=== PATIENT | male | born 1995 | race Caucasian/White ===

== ENCOUNTER 2019-05-02 02:42 | Inpatient (IN) ==
[2019-05-02 03:30] LABS: Basophils # (auto) 0.02 K/uL (0-0.2); Basophils % (auto) 0.3 %; Eosinophils # (auto) 0.17 K/uL (0-0.5); Eosinophils % (auto) 2.2 %; Hematocrit (blood only) 49.6 % (42-52); Hemoglobin 18.2 g/dL (14.0-18.0); Immature Granulocytes # (auto) 0.01 K/uL (0.00-0.02); Immature Granulocytes % (auto) 0.1 %; Lymphocytes # (auto) 2.85 K/uL (1.2-3.4); Lymphocytes % (auto) 36.5 %; Mean Corpuscular Hgb Conc 36.7 g/dL (32-36); Mean Corpuscular Volume 85.1 fL (80-100); Mean Platelet Volume 10.7 fL (7.4-10.4); Monocytes # (auto) 0.39 K/uL (0.11-0.59); Neutrophils # (auto) 4.36 K/uL (1.4-6.5); Neutrophils % (auto) 55.9 %; Platelet Count 195 K/uL (130-400); RDW Coefficient of Variation 12.4 % (11.5-14.5); RDW Standard Deviation 38.2 fL (36.4-46.3); Red Blood Count 5.83 M/uL (4.7-6.1)
[2019-05-02 03:51] LABS: Alanine Aminotransferase 40 U/L (12-78); Albumin Level 4.6 gm/dl (3.4-5.0); Aspartate Aminotransferase 21 U/L (15-37); BUN Creatinine Ratio 10.7 (10-20); Blood Urea Nitrogen 12 mg/dl (7-18); Calcium 8.5 mg/dl (8.5-10.1); Carbon Dioxide 23 mmol/L (21-32); Chloride 109 mmol/L (98-107); Creatinine Clr Calc Pharmacy 117.8 ml/min; Est GFR (African American) 112.3; Est GFR (Non-African American) 96.9; Glucose 97 mg/dl (70-99); Potassium 3.9 mmol/L (3.5-5.1); Sodium 142 mmol/L (136-145)
[2019-05-02 04:02] LABS: Acetaminophen < 2 ug/ml (10-30); Albumin Globulin Ratio 1.3 (0.9-2); Alkaline Phosphatase 100 U/L (45-117); Bilirubin,Total 0.3 mg/dl (0.2-1); Globulin 3.6 gm/dl (2.5-4.0); Salicylate < 1.7 mg/dl (2.8-20); Total Protein 8.2 gm/dl (6.4-8.2)
[2019-05-02 04:33] LABS: Amphetamines+Metham, Urine Neg (Neg); Barbiturates, Urine Neg (Neg); Benzodiazepine, Urine Neg (Neg); Cocaine, Urine Neg (Neg); MDMA (Ecstacy), Urine Neg (Neg); Methadone, Urine Neg (Neg); Opiate, Urine Neg (Neg); Phencyclidine, Urine Neg (Neg)
[2019-05-02 04:56] LABS: Appearance Urine Clear (Clear); Bilirubin Urine Negative (Negative); Blood Urine Negative (Negative); Color Urine Yellow; Glucose Urine UA Negative (Negative); Ketones Urine Negative (Negative); Leukocyte Esterase Urine Negative (Negative); Nitrite Urine Negative (Negative); Protein Urine Negative (Negative); Urobilinogen Urine Negative (Negative); pH Urine 5.5 (4.5-7.5)
[2019-05-02 05:06] LABS: Magnesium 2.4 mg/dl (1.8-2.4); Troponin I < 0.015 ng/ml (0-0.045)
[2019-05-02 05:30] LABS: Base Excess ABG -4.2 mEq/L (-9-1.8); HCO3 ABG 20 mmol/L (19-24); Oxygen Saturation ABG 97.6 % (90-95); PCO2 ABG 37 mmHg (35-46); PO2 ABG 99 mm/Hg (80-95); pH ABG 7.37 (7.35-7.45)
[2019-05-02 05:32] LABS: Allen Test Pos (Pos)
--- NOTE | 2019-05-02 05:52 | History & Physical Report ---
Date of Service May 02, 2019 Assessment & Plan (1) Hypoxemia: Episodic apneic symptoms Concomitant alcoholic intoxication Differentials include : Seizure disorder, sleep disordered breathing, cardiac dysfunction/arrhythmia Ongoing tobacco abuse Medical telemetry TTE, EEG RE episodic unresponsiveness Pulmonary consult RE episodic apnea, ? Undiagnosed sleep disorder DT precautions once patient awake Nicotine patch prn. DVT prophylaxis. SCDs Full code Mother requesting updates from providers. Mrs. Adela Theodore, contact #[phone]. History of Present Illness Chief Complaint: Passing out as per records Primary Care Provider: NO PCP History obtained from patient family, and records. Unable to obtain history from patient secondary to intoxicated state. Medical history significant for ongoing alcohol, tobacco abuse as per patient's mother. Patient is a resident of [place], [place] who is in town for the [employer]. Patient found downtown to be unresponsive, with intermittent apneic episodes and blank stares. EMS called to evaluate patient. Patient noted to have intermittent hypoxemia in the 80s. Similar episode in [facility] sometime back as per patient's mother. Patient brought to the emergency room for evaluation. Medical History as above Surgical History : None as per mother Family History : Sleep apnea Personal/Social history : Tobacco/alcohol abuse as per patient mother, factory work Home Medications Home Medications Medication Instructions Recorded Confirmed Type Unobtainable 05/02/19 05/02/19 History Past Med/Surg History Medical History No pertinent past medical history Family History Other No pertinent family history in first degree relatives Social History Preferred Language: Maltese Communication Ability: Effective Beliefs That Will Affect Care: None marital status: Unknown Current Living Situation: Parent Feels Safe at Home: Yes Safety Concerns: Feels Safe At This Time Smoking Status: Never smoker Hx Alcohol Use: Yes Alcohol type: beer and hard liquor Hx Substance Use: No Review of Systems Review of Systems: Could not be reliably obtained Physical Exam Physical Exam: GENERAL: obtunded, no respiratory distress SKIN: Normal color, warm HEENT: [place] palpebral conjunctivae, no ptosis, moist buccal mucosa NECK : Supple, no tenderness CHEST : CTA, no tenderness HEART : RRR, no obvious murmurs ABDOMEN: Some distention, nontender EXTREMITIES : No LE swelling/tenderness, no other conspicuous deformities noted NEUROLOGIC : Obtunded, miotic pupils, no facial asymmetry, no other gross focality Results & Data Vital Signs (Past 12 Hours) Vital Signs Temp Pulse Pulse Resp BP BP Pulse Ox 05/02/19 05:31 78 21 121/56 L 97 05/02/19 05:00 70 22 123/66 96 05/02/19 04:33 64 24 115/56 L 96 05/02/19 04:03 70 16 124/69 98 05/02/19 04:00 85 16 113/69 96 05/02/19 03:34 83 24 122/82 97 05/02/19 03:19 76 16 137/77 96 05/02/19 03:02 97 05/02/19 03:01 97 05/02/19 02:51 36.9 C 95 H 18 140/77 97 Laboratory Results Laboratory Results WBC 7.80 K/uL (4.8-10.8) 05/02/19 03:16 RBC 5.83 M/uL (4.7-6.1) 05/02/19 03:16 Hgb 18.2 g/dL (14.0-18.0) H 05/02/19 03:16 Hct 49.6 % (42-52) 05/02/19 03:16 MCV 85.1 fL (80-100) 05/02/19 03:16 MCH 31.2 pg (25-34) 05/02/19 03:16 MCHC 36.7 g/dL (32-36) H 05/02/19 03:16 RDW Std Deviation 38.2 fL (36.4-46.3) 05/02/19 03:16 RDW Coeff of Yoshi 12.4 % (11.5-14.5) 05/02/19 03:16 Plt Count 195 K/uL (130-400) 05/02/19 03:16 MPV 10.7 fL (7.4-10.4) H 05/02/19 03:16 Immature Gran % (Auto) 0.1 % 05/02/19 03:16 Neut % (Auto) 55.9 % 05/02/19 03:16 Lymph % (Auto) 36.5 % 05/02/19 03:16 [place] % (Auto) 5.0 % 05/02/19 03:16 Eos % (Auto) 2.2 % 05/02/19 03:16 Baso % (Auto) 0.3 % 05/02/19 03:16 Immature Gran # (Auto) 0.01 K/uL (0.00-0.02) 05/02/19 03:16 Neut # (Auto) 4.36 K/uL (1.4-6.5) 05/02/19 03:16 Lymph # (Auto) 2.85 K/uL (1.2-3.4) 05/02/19 03:16 [place] # (Auto) 0.39 K/uL (0.11-0.59) 05/02/19 03:16 Eos # (Auto) 0.17 K/uL (0-0.5) 05/02/19 03:16 Baso # (Auto) 0.02 K/uL (0-0.2) 05/02/19 03:16 ABG pH 7.37 (7.35-7.45) 05/02/19 05:15 ABG pCO2 37 mmHg (35-46) 05/02/19 05:15 ABG pO2 99 mm/Hg (80-95) H 05/02/19 05:15 ABG HCO3 20 mmol/L (19-24) 05/02/19 05:15 ABG O2 Saturation 97.6 % (90-95) H 05/02/19 05:15 ABG Base Excess -4.2 mEq/L (-9-1.8) 05/02/19 05:15 Aelx Test Pos (Pos) 05/02/19 05:15 Barometric Pressure 732.0 mm/Hg 05/02/19 05:15 Oxygen Given ROOM AIR 05/02/19 05:15 Sodium 142 mmol/L (136-145) 05/02/19 03:16 Potassium 3.9 mmol/L (3.5-5.1) 05/02/19 03:16 Chloride 109 mmol/L (98-107) H 05/02/19 03:16 Carbon Dioxide 23 mmol/L (21-32) 05/02/19 03:16 Anion Gap 10.0 (3-11) 05/02/19 03:16 BUN 12 mg/dl (7-18) 05/02/19 03:16 Creatinine 1.08 mg/dl (0.6-1.4) 05/02/19 03:16 Est Cr Clr Drug Dosing 117.8 ml/min 05/02/19 03:16 Est GFR ( Amer) 112.3 05/02/19 03:16 Est GFR (Non-Af Amer) 96.9 05/02/19 03:16 BUN/Creatinine Ratio 10.7 (10-20) 05/02/19 03:16 Glucose 97 mg/dl (70-99) 05/02/19 03:16 Calcium 8.5 mg/dl (8.5-10.1) 05/02/19 03:16 Magnesium 2.4 mg/dl (1.8-2.4) 05/02/19 03:16 Total Bilirubin 0.3 mg/dl (0.2-1) 05/02/19 03:16 AST 21 U/L (15-37) 05/02/19 03:16 ALT 40 U/L (12-78) 05/02/19 03:16 Alkaline Phosphatase 100 U/L (45-117) 05/02/19 03:16 Ammonia 20.0 umol/L (11-32) 05/02/19 05:15 Troponin I < 0.015 ng/ml (0-0.045) 05/02/19 03:16 Total Protein 8.2 gm/dl (6.4-8.2) 05/02/19 03:16 Albumin 4.6 gm/dl (3.4-5.0) 05/02/19 03:16 Globulin 3.6 gm/dl (2.5-4.0) 05/02/19 03:16 Albumin/Globulin Ratio 1.3 (0.9-2) 05/02/19 03:16 TSH 2.190 uIu/ml (0.300-4.500) 05/02/19 03:16 Urine Color Yellow 05/02/19 04:05 Urine Appearance Clear (Clear) 05/02/19 04:05 Urine pH 5.5 (4.5-7.5) 05/02/19 04:05 Ur Specific [place] 1.010 (1.000-1.030) 05/02/19 04:05 Urine Protein Negative (Negative) 05/02/19 04:05 Urine Glucose (UA) Negative (Negative) 05/02/19 04:05 Urine Ketones Negative (Negative) 05/02/19 04:05 Urine Blood Negative (Negative) 05/02/19 04:05 Urine Nitrite Negative (Negative) 05/02/19 04:05 Urine Bilirubin Negative (Negative) 05/02/19 04:05 Urine Urobilinogen Negative (Negative) 05/02/19 04:05 Ur Leukocyte Esterase Negative (Negative) 05/02/19 04:05 Salicylates < 1.7 mg/dl (2.8-20) L 05/02/19 03:16 Urine Opiates Screen Neg (Neg) 05/02/19 04:05 Ur Methadone, Qual Neg (Neg) 05/02/19 04:05 Acetaminophen < 2 ug/ml (10-30) L 05/02/19 03:16 Urine Barbiturates Neg (Neg) 05/02/19 04:05 Ur Phencyclidine (PCP) Neg (Neg) 05/02/19 04:05 U Amphetamin/Meth Scrn Neg (Neg) 05/02/19 04:05 MDMA (Ecstasy) Screen Neg (Neg) 05/02/19 04:05 U Benzodiazepines Scrn Neg (Neg) 05/02/19 04:05 Ur Cocaine Metabolite Neg (Neg) 05/02/19 04:05 U Marijuana (THC) Screen Neg (Neg) 05/02/19 04:05 Ethyl Alcohol mg/dL 293.0 mg/dl (0-3) H 05/02/19 03:[address] head initial read no acute intracranial hemorrhage Chest x-ray as per my interpretation no infiltrate no congestion EKG pending
--- NOTE | 2019-05-02 06:05 | Emergency Department Note ---
Entered by Christo Rich acting as a scribe for History of Present Illness General Chief complaint: Alcohol Intoxication Stated complaint: ALCOHOL Time Seen by Provider: 05/02/19 02:58 Source: patient and EMS History of Present Illness Provider complaint: Alcohol intoxication Onset (ago): hour(s) (Just prior to arrival) Location: head Pain Consistency: + intermittent Relieved By: + none Exacerbated By: + none Associated symptoms: + headaches and + other (Positive unresponsive episodes) The patient is a 23 year old male who presents to the Emergency Room via EMS heavily intoxicated from alcohol. Per EMS, the patient was downtown starting arguments when police approached him to talk. After this interaction the patient was let go, however, later on in the night the patient was approached by police again because he was more unresponsive. Per EMS, the patient stopped breathing and had a blank stare while under their care. EMS reports that during the unresponsive episodes his oxygen saturation rapidly dropped from 97% to 83%. EMS notes they could see his eyes flickering, but they did not recognize any evidence for a seizure. While with EMS, they did noticed a soft bump on his head. Per the patient, he took a 20mg Adderall today and has only eaten a McChicken. He notes that he has been put in counselling before for his drinking habits. He also states that he has been brought to the hospital in [place] before for passing out intoxicated. The patient denies any medical history or family history of seizures. Home Medications Home Medications Medication Instructions Recorded Confirmed Type Unobtainable 05/02/19 05/02/19 History Past Med/Surg History Medical History No pertinent past medical history Family History Other No pertinent family history in first degree relatives Social History Feels Safe at Home: Yes Smoking Status: Current every day smoker Review of Systems See HPI for pertinent positives & negatives. and A total of 10 systems reviewed and were otherwise negative Physical Exam Vital Signs Vital Signs - 24 hr 05/02/19 02:51 05/02/19 03:01 05/02/19 03:02 Temperature 36.9 C Temperature Source Rectal Sepsis Recent Fever Within 48 Hours No Sepsis Action Taken by Nursing No Action Required Pulse Rate 95 H Pulse Rate [Apical] Pulse Rhythm [Apical] Pulse Strength [Apical] Respiratory Rate 18 Respiratory Effort / Characteristics Non-Labored Spontaneous Respiratory Depth Normal Respiratory Pattern Blood Pressure 140/77 Blood Pressure [Right Arm] Blood Pressure Mean 98 Blood Pressure Mean [Right Arm] Blood Pressure Position [Right Arm] Pulse Oximetry 97 97 97 Oxygen Delivery Method Non-rebreather Room Air Room Air Oxygen Flow Rate 15 05/02/19 03:19 05/02/19 03:34 05/02/19 04:00 Temperature Temperature Source Sepsis Recent Fever Within 48 Hours Sepsis Action Taken by Nursing Pulse Rate Pulse Rate [Apical] 76 83 85 Pulse Rhythm [Apical] Regular Regular Regular Pulse Strength [Apical] Normal Normal Normal Respiratory Rate 16 24 16 Respiratory Effort / Characteristics Non-Labored Spontaneous Non-Labored Spontaneous Non-Labored Spontaneous Respiratory Depth Normal Normal Normal Respiratory Pattern Regular Regular Blood Pressure Blood Pressure [Right Arm] 137/77 122/82 113/69 Blood Pressure Mean Blood Pressure Mean [Right Arm] 97 95 83 Blood Pressure Position [Right Arm] Sitting Sitting Pulse Oximetry 96 97 96 Oxygen Delivery Method Room Air Room Air Room Air Oxygen Flow Rate 05/02/19 04:03 05/02/19 04:33 05/02/19 05:00 Temperature Temperature Source Sepsis Recent Fever Within 48 Hours Sepsis Action Taken by Nursing Pulse Rate Pulse Rate [Apical] 70 64 70 Pulse Rhythm [Apical] Regular Regular Regular Pulse Strength [Apical] Normal Normal Normal Respiratory Rate 16 24 22 Respiratory Effort / Characteristics Non-Labored Spontaneous Non-Labored Spontaneous Non-Labored Spontaneous Respiratory Depth Normal Normal Normal Respiratory Pattern Regular Regular Regular Blood Pressure Blood Pressure [Right Arm] 124/69 115/56 L 123/66 Blood Pressure Mean Blood Pressure Mean [Right Arm] 87 75 85 Blood Pressure Position [Right Arm] Sitting Lying Pulse Oximetry 98 96 96 Oxygen Delivery Method Room Air Room Air Room Air Oxygen Flow Rate 05/02/19 05:31 Temperature Temperature Source Sepsis Recent Fever Within 48 Hours Sepsis Action Taken by Nursing Pulse Rate Pulse Rate [Apical] 78 Pulse Rhythm [Apical] Regular Pulse Strength [Apical] Normal Respiratory Rate 21 Respiratory Effort / Characteristics Non-Labored Spontaneous Respiratory Depth Normal Respiratory Pattern Regular Blood Pressure Blood Pressure [Right Arm] 121/56 L Blood Pressure Mean Blood Pressure Mean [Right Arm] 77 Blood Pressure Position [Right Arm] Lying Pulse Oximetry 97 Oxygen Delivery Method Room Air Oxygen Flow Rate General: Smelled of EtOH, slightly confused. HEENT: Head - normocephalic and atraumatic Pupils are equal, round, and reactive to light. Extraocular eye muscles are intact, and sclera are anicteric. Nose - moist nasal mucosa without discharge. Mouth - moist buccal mucosa. Oropharynx is nonerythematous and there is no tonsillar exudate or edema noted. Neck: Supple; no JVD, nuchal rigidity, cervical lymphadenopathy. Heart: Regular rate and rhythm. There is a normal S1 and S2 with no murmurs, clicks, or gallops appreciated. Lungs: Clear to auscultation bilaterally with no wheezes, rales, or rhonchi. Abdomen: Soft, completely nontender, nondistended, with good bowel sounds. There are no palpable pulsatile masses or hepatosplenomegaly. There is no guarding, rigidity, or rebound noted. Extremities: No evidence of cyanosis, clubbing, or edema. There are easily palpable peripheral pulses. Skin: warm and dry with good turgor and no rashes. Course 0248: Past medical records reviewed. The patient was evaluated in room A01, and a complete history and physical examination were performed. The patient was observed on the school bus monitor and pulse oximeter. 0329: The patient was complaining of severe head pain and vomited. He then went unresponsive and apneic. He is still currently unresponsive but is breathing. The patient will go to CT for brain imaging. 0442: I spoke to Dr. Areli Garcia about the patient's case and he is going to accept him for further evaluation. 0450: I spoke to the patient's mother and informed her on the situation regarding her son. Both her and her will be coming from [place] in the morning. I also passed on her phone number to the patient's chart so that Dr. Singleton has it. 0515: I spoke to Dr. Singleton and informed him that I spoke with the patient's mother and she will be coming tomorrow morning. Consultations Consultation #1: I spoke to Dr. Areli Garcia about the patient's case and he is going to accept him for further evaluation. Time: 04:42 Medical Decision Making Differential Diagnosis The patient is a 23 year old male who presents to the Emergency Room via EMS heavily intoxicated from alcohol. Differential diagnosis includes Alcohol overdose, Drug intoxication, Hypoglycemia, Head injury, Intracranial hemorrhage, and Intracranial mass, amongst others. Medical Records Attestation: I reviewed the patient's medical records. Home Medications Current Medication List: was personally reviewed by me Laboratory Data Attestation: I reviewed the patient's lab results. Result diagrams: 05/02/19 03:16 05/02/19 03:16 Lab Results 05/02/19 05/02/19 05/02/19 Range/Units 03:16 03:16 03:16 WBC 7.80 (4.8-10.8) K/uL RBC 5.83 (4.7-6.1) M/uL Hgb 18.2 H (14.0-18.0) g/dL Hct 49.6 (42-52) % MCV 85.1 (80-100) fL MCH 31.2 (25-34) pg MCHC 36.7 H (32-36) g/dL RDW Std Deviation 38.2 (36.4-46.3) fL RDW Coeff of [place]oshi 12.4 (11.5-14.5) % Plt Count 195 (130-400) K/uL MPV 10.7 H (7.4-10.4) fL Immature Gran % (Auto) 0.1 % Neut % (Auto) 55.9 % Lymph % (Auto) 36.5 % [place] % (Auto) 5.0 % Eos % (Auto) 2.2 % Baso % (Auto) 0.3 % Immature Gran # (Auto) 0.01 (0.00-0.02) K/uL Neut # (Auto) 4.36 (1.4-6.5) K/uL Lymph # (Auto) 2.85 (1.2-3.4) K/uL [place] # (Auto) 0.39 (0.11-0.59) K/uL Eos # (Auto) 0.17 (0-0.5) K/uL Baso # (Auto) 0.02 (0-0.2) K/uL ABG pH (7.35-7.45) ABG pCO2 (35-46) mmHg ABG pO2 (80-95) mm/Hg ABG HCO3 (19-24) mmol/L ABG O2 Saturation (90-95) % ABG Base Excess (-9-1.8) mEq/L Alex Test (Pos) Barometric Pressure mm/Hg Oxygen Given Sodium 142 (136-145) mmol/L Potassium 3.9 (3.5-5.1) mmol/L Chloride 109 H (98-107) mmol/L Carbon Dioxide 23 (21-32) mmol/L Anion Gap 10.0 (3-11) BUN 12 (7-18) mg/dl Creatinine 1.08 (0.6-1.4) mg/dl Est Cr Clr Drug Dosing 117.8 ml/min Est GFR ( Amer) 112.3 Est GFR (Non-Af Amer) 96.9 BUN/Creatinine Ratio 10.7 (10-20) Glucose 97 (70-99) mg/dl Calcium 8.5 (8.5-10.1) mg/dl Magnesium 2.4 (1.8-2.4) mg/dl Total Bilirubin 0.3 (0.2-1) mg/dl AST 21 (15-37) U/L ALT 40 (12-78) U/L Alkaline Phosphatase 100 (45-117) U/L Ammonia (11-32) umol/L Troponin I < 0.015 (0-0.045) ng/ml Total Protein 8.2 (6.4-8.2) gm/dl Albumin 4.6 (3.4-5.0) gm/dl Globulin 3.6 (2.5-4.0) gm/dl Albumin/Globulin Ratio 1.3 (0.9-2) TSH 2.190 (0.300-4.500) uIu/ml Urine Color Urine Appearance (Clear) Urine pH (4.5-7.5) Ur Specific [place] (1.000-1.030) Urine Protein (Negative) Urine Glucose (UA) (Negative) Urine Ketones (Negative) Urine Blood (Negative) Urine Nitrite (Negative) Urine Bilirubin (Negative) Urine Urobilinogen (Negative) Ur Leukocyte Esterase (Negative) Salicylates < 1.7 L (2.8-20) mg/dl Urine Opiates Screen (Neg) Ur Methadone, Qual (Neg) Acetaminophen < 2 L (10-30) ug/ml Urine Barbiturates (Neg) Ur Phencyclidine (PCP) (Neg) U Amphetamin/Meth Scrn (Neg) MDMA (Ecstasy) Screen (Neg) U Benzodiazepines Scrn (Neg) Ur Cocaine Metabolite (Neg) U Marijuana (THC) Screen (Neg) Ethyl Alcohol mg/dL (0-3) mg/dl 05/02/19 05/02/19 05/02/19 Range/Units 03:16 04:05 04:05 WBC (4.8-10.8) K/uL RBC (4.7-6.1) M/uL Hgb (14.0-18.0) g/dL Hct (42-52) % MCV (80-100) fL MCH (25-34) pg MCHC (32-36) g/dL RDW Std Deviation (36.4-46.3) fL RDW Coeff of [place] (11.5-14.5) % Plt Count (130-400) K/uL MPV (7.4-10.4) fL Immature Gran % (Auto) % Neut % (Auto) % Lymph % (Auto) % Ness % (Auto) % Eos % (Auto) % Baso % (Auto) % Immature Gran # (Auto) (0.00-0.02) K/uL Neut # (Auto) (1.4-6.5) K/uL Lymph # (Auto) (1.2-3.4) K/uL [place]ess # (Auto) (0.11-0.59) K/uL Eos # (Auto) (0-0.5) K/uL Baso # (Auto) (0-0.2) K/uL ABG pH (7.35-7.45) ABG pCO2 (35-46) mmHg ABG pO2 (80-95) mm/Hg ABG HCO3 (19-24) mmol/L ABG O2 Saturation (90-95) % ABG Base Excess (-9-1.8) mEq/L Alex Test (Pos) Barometric Pressure mm/Hg Oxygen Given Sodium (136-145) mmol/L Potassium (3.5-5.1) mmol/L Chloride (98-107) mmol/L Carbon Dioxide (21-32) mmol/L Anion Gap (3-11) BUN (7-18) mg/dl Creatinine (0.6-1.4) mg/dl Est Cr Clr Drug Dosing ml/min Est GFR ( Amer) Est GFR (Non-Af Amer) BUN/Creatinine Ratio (10-20) Glucose (70-99) mg/dl Calcium (8.5-10.1) mg/dl Magnesium (1.8-2.4) mg/dl Total Bilirubin (0.2-1) mg/dl AST (15-37) U/L ALT (12-78) U/L Alkaline Phosphatase (45-117) U/L Ammonia (11-32) umol/L Troponin I (0-0.045) ng/ml Total Protein (6.4-8.2) gm/dl Albumin (3.4-5.0) gm/dl Globulin (2.5-4.0) gm/dl Albumin/Globulin Ratio (0.9-2) TSH (0.300-4.500) uIu/ml Urine Color Yellow Urine Appearance Clear (Clear) Urine pH 5.5 (4.5-7.5) Ur Specific [place] 1.010 (1.000-1.030) Urine Protein Negative (Negative) Urine Glucose (UA) Negative (Negative) Urine Ketones Negative (Negative) Urine Blood Negative (Negative) Urine Nitrite Negative (Negative) Urine Bilirubin Negative (Negative) Urine Urobilinogen Negative (Negative) Ur Leukocyte Esterase Negative (Negative) Salicylates (2.8-20) mg/dl Urine Opiates Screen Neg (Neg) Ur Methadone, Qual Neg (Neg) Acetaminophen (10-30) ug/ml Urine Barbiturates Neg (Neg) Ur Phencyclidine (PCP) Neg (Neg) U Amphetamin/Meth Scrn Neg (Neg) MDMA (Ecstasy) Screen Neg (Neg) U Benzodiazepines Scrn Neg (Neg) Ur Cocaine Metabolite Neg (Neg) U Marijuana (THC) Screen Neg (Neg) Ethyl Alcohol mg/dL 293.0 H (0-3) mg/dl 05/02/19 05/02/19 Range/Units 05:15 05:15 WBC (4.8-10.8) K/uL RBC (4.7-6.1) M/uL Hgb (14.0-18.0) g/dL Hct (42-52) % MCV (80-100) fL MCH (25-34) pg MCHC (32-36) g/dL RDW Std Deviation (36.4-46.3) fL RDW Coeff of [place] (11.5-14.5) % Plt Count (130-400) K/uL MPV (7.4-10.4) fL Immature Gran % (Auto) % Neut % (Auto) % Lymph % (Auto) % Ness % (Auto) % Eos % (Auto) % Baso % (Auto) % Immature Gran # (Auto) (0.00-0.02) K/uL Neut # (Auto) (1.4-6.5) K/uL Lymph # (Auto) (1.2-3.4) K/uL [place]ess # (Auto) (0.11-0.59) K/uL Eos # (Auto) (0-0.5) K/uL Baso # (Auto) (0-0.2) K/uL ABG pH 7.37 (7.35-7.45) ABG pCO2 37 (35-46) mmHg ABG pO2 99 H (80-95) mm/Hg ABG HCO3 20 (19-24) mmol/L ABG O2 Saturation 97.6 H (90-95) % ABG Base Excess -4.2 (-9-1.8) mEq/L Alex Test Pos (Pos) Barometric Pressure 732.0 mm/Hg Oxygen Given ROOM AIR Sodium (136-145) mmol/L Potassium (3.5-5.1) mmol/L Chloride (98-107) mmol/L Carbon Dioxide (21-32) mmol/L Anion Gap (3-11) BUN (7-18) mg/dl Creatinine (0.6-1.4) mg/dl Est Cr Clr Drug Dosing ml/min Est GFR ( Amer) Est GFR (Non-Af Amer) BUN/Creatinine Ratio (10-20) Glucose (70-99) mg/dl Calcium (8.5-10.1) mg/dl Magnesium (1.8-2.4) mg/dl Total Bilirubin (0.2-1) mg/dl AST (15-37) U/L ALT (12-78) U/L Alkaline Phosphatase (45-117) U/L Ammonia 20.0 (11-32) umol/L Troponin I (0-0.045) ng/ml Total Protein (6.4-8.2) gm/dl Albumin (3.4-5.0) gm/dl Globulin (2.5-4.0) gm/dl Albumin/Globulin Ratio (0.9-2) TSH (0.300-4.500) uIu/ml Urine Color Urine Appearance (Clear) Urine pH (4.5-7.5) Ur Specific [place] (1.000-1.030) Urine Protein (Negative) Urine Glucose (UA) (Negative) Urine Ketones (Negative) Urine Blood (Negative) Urine Nitrite (Negative) Urine Bilirubin (Negative) Urine Urobilinogen (Negative) Ur Leukocyte Esterase (Negative) Salicylates (2.8-20) mg/dl Urine Opiates Screen (Neg) Ur Methadone, Qual (Neg) Acetaminophen (10-30) ug/ml Urine Barbiturates (Neg) Ur Phencyclidine (PCP) (Neg) U Amphetamin/Meth Scrn (Neg) MDMA (Ecstasy) Screen (Neg) U Benzodiazepines Scrn (Neg) Ur Cocaine Metabolite (Neg) U Marijuana (THC) Screen (Neg) Ethyl Alcohol mg/dL (0-3) mg/dl Imaging Data Attestation: I personally reviewed and interpreted this imaging study as follows: My Impression: CHEST XRAY 1 View No obvious pulmonary consolidation or infiltrate. Radiologist's Impression: Radiology results as stated below per my review and the radiologist's interpretation: CT HEAD No acute intracranial hemorrhage, mass effect, midline shift, hydrocephalus or infarct. Bony structures are intact. Soft tissues are unremarkable. Radiologist: Jenaro Gipson MD Study ready at 04:01 and initial results transmitted at 04:10 Blood Pressure Blood Pressure Findings: Normal blood pressure MDM Narrative The patient is a 23 year old male who presents to the Emergency Room via EMS heavily intoxicated from alcohol. The patient appears to have drank a significant amount of alcohol. However, the patient has intermittent episodes of apnea and unresponsiveness. The patient will be talking to you and then suddenly go unresponsive and stopped breathing. This is quite unusual for an alcohol overdose. Patient does admit to taking Adderall which is not prescribed to him. He did not overdose on this and only took 1 tablet today. The patient does describe drinking alcohol frequently but does not think that he is a alcoholic. I am concerned that the patient is having episodes of apnea which do result in a dropping oxygen saturation. CT scan of the brain was unremarkable. The patient is resting comfortably at this time. I discussed the case with the [facility] Hospitalist and they will evaluate for further management. Impression & Plan Apnea, Alcohol overdose Discharge Plan Visit Data Chief Complaint: Alcohol Intoxication Stated Complaint: ALCOHOL ED Provider: Lisa Weston Discharge Problem: Apnea, Alcohol overdose Patient Disposition: Being Evaluated by Hospitalist Forms Stand Alone Forms: [facility] Prescriptions Prescriptions: No Action Unobtainable RF: 0 Referrals Referrals: PCP,NO [Primary Care Provider] - Discharge Problem: Alcohol overdose Qualifiers: Encounter type: initial encounter Injury intent: accidental or unintentional Qualified Code(s): T51.91XA - Toxic effect of unspecified alcohol, accidental (unintentional), initial encounter The scribe's documentation has been prepared under my direction and personally reviewed by me in its entirety. I confirm that the note above accurately reflects all work, treatment, procedures, and medical decision making performed by me.
--- NOTE | 2019-05-02 07:24 | XRay Report ---
SINGLE VIEW CHEST CLINICAL HISTORY: Intoxication. Hypoxia. FINDINGS: An AP, portable, supine chest radiograph is obtained. No prior studies are available for co mparison at the time of dictation. The examination is degraded by portable technique and patient rota tion. The cardiomediastinal silhouette is normal for projection. The lungs and pleural spaces are cl ear. No pneumothorax is seen. The bony thorax is grossly intact. IMPRESSION: No active disease in the chest. Electronically signed by: Trae Ramsey M.D. 05/02/2019 7:23 AM
[2019-05-02] MEDS ORDERED: ACETAMINOPHEN 325 MG TAB PO PRN (07:28)
[2019-05-02] MEDS ORDERED: MULTI-VITAMIN INFUSION 10 ML, THIAMINE HCL 100 MG, FOLIC ACID 1 MG in SODIUM CHLORIDE 0... IV STA (07:31)
[2019-05-02] MEDS ORDERED: FOLIC ACID 1 MG TAB PO SCH (09:00)
[2019-05-02] MEDS ORDERED: THIAMINE HCL 100 MG TAB PO SCH (09:00)
[2019-05-02] MEDS ORDERED: MULTIVITAMIN TAB PO SCH (09:00)
--- NOTE | 2019-05-02 11:08 | CT Scan Report ---
CT SCAN OF THE BRAIN WITHOUT IV CONTRAST CLINICAL HISTORY: Intoxication. Apneic episodes. COMPARISON STUDY: No priors. TECHNIQUE: Unenhanced axial CT scan of the brain is performed from the vertex to the skull base. A d ose lowering technique was utilized adhering to the principles of ALARA. CT DOSE: 614.27 mGy.cm FINDINGS: Brain parenchyma: The brain parenchyma is normal in appearance. There is no hemorrhage, mass effect, or evidence of acute territorial ischemia by CT criteria. Ch-white matter differentiation is preser zamzam. No extra-axial fluid collection is seen. Ventricles, sulci, cisterns: Normal in configuration. Intracranial vasculature: The visualized intracranial vasculature at the skull base is normal in appe arance. Calvarium: Unremarkable. Sinuses and mastoids: The visualized paranasal sinuses are clear. The mastoid air cells are well pneu matized. Orbits: The bony orbits are grossly intact. IMPRESSION: No acute intracranial abnormality. Electronically signed by: Trae Ramsey M.D. 05/02/2019 11:07 AM
--- NOTE | 2019-05-02 11:47 | Procedure Note ---
EEG Procedure Note Date of Service May 02, 2019 Start / End Times Start Time: 951 End Time: [address] Umana History Syncopal event occurring in setting of alcohol abuse and possible withdrawal Home Medication List Home Medications Medication Instructions Recorded Confirmed Type Unobtainable 05/02/19 05/02/19 History Inpatient Medication List Folic Acid (Folvite) 1 mg PO QAM JORGE ALBERTO Stop: 06/01/19 08:59 Last Admin: 05/02/19 08:25 Dose: 1 mg Documented by: [id number] Multivitamins 10 ml/ Thiamine HCl 100 mg/ Folic Acid 1 mg/Sodium Chloride 1,011.2 mls @ 80 mls/hr IV .[id number] STA Stop: 05/02/19 20:09 Last Admin: 05/02/19 08:25 Dose: 80 mls/hr Documented by: [id number] Multivitamins (Multivitamin Tab) 1 tab PO QAM [facility] Stop: 06/01/19 08:59 Last Admin: 05/02/19 08:25 Dose: 1 tab Documented by: [id number] Thiamine HCl (Vitamin B-1) 100 mg PO QAM [facility] Stop: 06/01/19 08:59 Last Admin: 05/02/19 08:25 Dose: 100 mg Documented by: [id number] Description This is a 21 electrode EEG with a single channel dedicated to limited EKG. The electrodes were placed in accordance with the International 10-20 system. This EEG was done as a bedside recording is good technical quality with fewer no muscle movement artifacts. Photic stimulation is performed. Hyperventilation is not. Drowsiness is recorded visually but the EEG does not change si gnificantly during this interval During what appears to be drowsiness or transition between drowsiness and wakefulness there is evidence for background rhythm in the lower alpha range of 9 Hz and maximum frequency and of 30 V maximum amplitude. This is maximum and posterior head regions bilaterally symmetrical. Polymorphic mid frequency theta activity of modest voltage is seen in the central regions without clear focal regional predominance. Anterior head region maximum bilateral symmetrical level was fast activity at beta range is present. Photic stimulation provokes a modest response without a photo myogenic a photoparoxysmal component No time during the current tracing is or evidence for potentially epileptogenic activity in the form of polyspike and spike-wave burst, focal sharp waves or focal spikes Interpretation This is an essentially normal EEG during wakefulness/drowsiness with no evidence for a focal or generalized encephalopathy and no evidence for potentially epileptogenic activity Clinical Correlation Essentially normal EEG as described above there is no evidence to suggest ongoing or potentially epileptogenic activity or a significant focal or generalized encephalopathy Arvind Dunn MD
--- NOTE | 2019-05-02 15:04 | Hospitalist Progress Note ---
Date of Service May 02, 2019 Assessment & Plan (1) Alcohol intoxication: -The patient is a 23 year old male who presents to the Emergency Room via EMS heavily intoxicated from alcohol. Per EMS, the patient was downtown starting arguments when police approached him to talk. After this interaction the patient was let go, however, later on in the night the patient was approached by police again because he was more unresponsive. Per EMS, the patient stopped breathing and had a blank stare while under their care. EMS reports that during the unresponsive episodes his oxygen saturation rapidly dropped from 97% to 83%. EMS notes they could see his eyes flickering, but they did not recognize any evidence for a seizure -Head CT scan No acute intracranial abnormality -patient's urine positive for ETOH -patient was monitored on telemtry in the [facility] [place] without arrhythmias -patient had normal echocardiogram with ejection fraction 60 to 65% -patient had EEG: Essentially normal EEG as described above there is no evidence to suggest ongoing or potentially epileptogenic activity or a significant focal or generalized encephalopathy -patient received banana bag -patient was more responsive around breakfast time of 05/02/19 and normal baseline mental status by lunch time of 05/02/19. Patient reported excessive alcohol use prior to hospital presentation -Patient breathing comfortably on room air. -medical doctor have offered to extend patient's observation time in the hospital to 05/03/19 but patient and patient's family feels that workup so fair has been adequate and will like for hospital discharge -have discussed with patient and patient's parents that initial apneic episodes from alcohol intoxication -patient to be discharged to home under care of his parents -recommend that patient should follow up with a primary care doctor after discharge and avoid alcohol misuse Discharge Diagnosis Alcohol misuse Alcohol Intoxication apnea and hypoxia from alcohol intoxication Subjective patient was more responsive around breakfast time of 05/02/19 and normal baseline mental status by lunch time of 05/02/19. Patient reported excessive alcohol use prior to hospital presentation Patient breathing comfortably on room air. medical doctor have offered to extend patient's observation time in the hospital to 05/03/19 but patient and patient's family feels that workup so fair has been adequate and will like for hospital discharge currently no chest pain, no shortness of breath, no vomiting, no abdomen pain, ambulatory, mental baseline as confirmed by patient's family members, answering questions appropriately Physical Exam Constitutional: WD/WN, vitals as above Eyes: PERRL, conjunctivae normal, anicteric sclerae EOM intact bilaterally ENMT: external ear and nose normal, oropharynx normal Neck: trachea midline, no thyromegaly Respiratory: normal respiratory effort, lungs clear to auscultation Cardiovascular: RRR, no murmur, no edema Gastrointestinal (Abdomen): normal bowel sounds, soft, nontender, no hepatosplenomegaly Musculoskeletal: Head/Neck/Chest: normocephalic and head atraumatic Neurologic: PERRL, EOMI, accommodation nl, no face palsy, no dysarthria CN's II-XI intact bilaterally Psychiatric: A+Ox3, euthymic affect Results & Data Vital Signs (Past 12 Hours) Vital Signs Temp Pulse Pulse Resp BP BP Pulse Ox 05/02/19 11:42 36.6 C 86 18 117/68 97 05/02/19 07:18 36.3 C L 73 16 107/69 100 05/02/19 07:01 74 21 126/59 L 98 05/02/19 06:44 72 20 128/57 L 98 05/02/19 06:03 79 24 126/59 L 97 05/02/19 05:31 78 21 121/56 L 97 05/02/19 05:00 70 22 123/66 96 05/02/19 04:33 64 24 115/56 L 96 05/02/19 04:03 70 16 124/69 98 05/02/19 04:00 85 16 113/69 96 05/02/19 03:34 83 24 122/82 97 05/02/19 03:19 76 16 137/77 96
--- NOTE | 2019-05-02 15:19 | Discharge Summary ---
Date of Service May 02, 2019 Admission HPI Per Admitting Provider History obtained from patient family, and records. Unable to obtain history from patient secondary to intoxicated state. Medical history significant for ongoing alcohol, tobacco abuse as per patient's mother. Patient is a resident of [place], [place] who is in town for the [employer]. Patient found downtown to be unresponsive, with intermittent apneic episodes and blank stares. EMS called to evaluate patient. Patient noted to have intermittent hypoxemia in the 80s. Similar episode in [facility] sometime back as per patient's mother. Patient brought to the emergency room for evaluation. Principal Diagnosis Alcohol misuse Alcohol Intoxication apnea and hypoxia from alcohol intoxication Discharge Exam Constitutional WD/WN, vitals as above Eyes PERRL, conjunctivae normal, anicteric sclerae EOM intact bilaterally ENMT external ear and nose normal, oropharynx normal Neck trachea midline, no thyromegaly Respiratory normal respiratory effort, lungs clear to auscultation Cardiovascular RRR, no murmur, no edema Gastrointestinal (Abdomen) normal bowel sounds, soft, nontender, no hepatosplenomegaly Musculoskeletal Head/Neck/Chest: normocephalic and head atraumatic Neurologic PERRL, EOMI, accommodation nl, no face palsy, no dysarthria CN's II-XI intact bilaterally Psychiatric A+Ox3, euthymic affect Discharge Data Consultations 05/02/19 04:34 ED Decision to Admit Stat 05/02/19 07:28 Consult Pulmonology Routine Ordered Studies 05/02/19 03:38 CT head/brain wo con Urgent Hospital Course (1) Alcohol intoxication: -The patient is a 23 year old male who presents to the Emergency Room via EMS heavily intoxicated from alcohol. Per EMS, the patient was downtown starting arguments when police approached him to talk. After this interaction the patient was let go, however, later on in the night the patient was approached by police again because he was more unresponsive. Per EMS, the patient stopped breathing and had a blank stare while under their care. EMS reports that during the unresponsive episodes his oxygen saturation rapidly dropped from 97% to 83%. EMS notes they could see his eyes flickering, but they did not recognize any evidence for a seizure -Head CT scan No acute intracranial abnormality -patient's urine positive for ETOH -patient was monitored on telemtry in the [facility] [place] without arrhythmias -patient had normal echocardiogram with ejection fraction 60 to 65% -patient had EEG: Essentially normal EEG as described above there is no evidence to suggest ongoing or potentially epileptogenic activity or a significant focal or generalized encephalopathy -patient received banana bag -patient was more responsive around breakfast time of 05/02/19 and normal baseline mental status by lunch time of 05/02/19. Patient reported excessive alcohol use prior to hospital presentation -Patient breathing comfortably on room air. -medical doctor have offered to extend patient's observation time in the hospital to 05/03/19 but patient and patient's family feels that workup so fair has been adequate and will like for hospital discharge -have discussed with patient and patient's parents that initial apneic episodes from alcohol intoxication -patient to be discharged to home under care of his parents -recommend that patient should follow up with a primary care doctor after discharge and avoid alcohol misuse Discharge Diagnosis Alcohol misuse Alcohol Intoxication apnea and hypoxia from alcohol intoxication Total Time Total Time Spent Total Time Spent (In Minutes): 40 minutes Total Time Includes: Examination of the Patient, Discharge Planning and Medication Reconciliation Discharge Plan Discharge Items Patient Disposition: Home - Self-Care Reason For Visit: EPISODIC HYPOXEMIA Discharge Diagnosis: Alcohol misuse Alcohol Intoxication apnea and hypoxia from alcohol intoxication Condition: Good Discharge Goals: Improve disease control Activity: Per 'Additional Instructions' section Non-emergency contact: Primary Care Provider Call non-emergency contact if: you have any medication questions Follow-up/Referrals: PCP,NO [Primary Care Provider] - Diet: Regular Addtl Provider Instructions: -The patient is a 23 year old male who presents to the Emergency Room via EMS heavily intoxicated from alcohol. Per EMS, the patient was downtown starting arguments when police approached him to talk. After this interaction the patient was let go, however, later on in the night the patient was approached by police again because he was more unresponsive. Per EMS, the patient stopped breathing and had a blank stare while under their care. EMS reports that during the unresponsive episodes his oxygen saturation rapidly dropped from 97% to 83%. EMS notes they could see his eyes flickering, but they did not recognize any evidence for a seizure -Head CT scan No acute intracranial abnormality -patient's urine positive for ETOH -patient was monitored on telemtry in the [facility] [place] without arrhythmias -patient had normal echocardiogram with ejection fraction 60 to 65% -patient had EEG: Essentially normal EEG as described above there is no evidence to suggest ongoing or potentially epileptogenic activity or a significant focal or generalized encephalopathy -patient received banana bag -patient was more responsive around breakfast time of 05/02/19 and normal baseline mental status by lunch time of 05/02/19. Patient reported excessive alcohol use prior to hospital presentation -Patient breathing comfortably on room air. -medical doctor have offered to extend patient's observation time in the hospital to 05/03/19 but patient and patient's family feels that workup so fair has been adequate and will like for hospital discharge -have discussed with patient and patient's parents that initial apneic episodes from alcohol intoxication -patient to be discharged to home under care of his parents -recommend that patient should follow up with a primary care doctor after discharge and avoid alcohol misuse Prescriptions: No Action Unobtainable RF: 0 Stand-Alone Forms: [facility] Discharge Orders: Discharge Order (Routine); Ordered 05/02/19 Ordered By: Km Gamboa Admission Data Admit Date/Time: 05/02/19 05:58 Attending Provider: Km Gamboa Admit Provider: Noel Singleton Primary Care Provider: PCP,NO Other Providers: Noel Singleton ; Pasquale Boothe Service: Telemetry Medical
--- NOTE | 2019-05-02 20:19 | Consultation Report ---
DATE OF CONSULTATION: 05/02/2019 PULMONARY MEDICINE CONSULTATION TIME: 10:30 REASON FOR CONSULTATION: Syncope, (?) hypoxia and acute ethanol intoxication. HISTORY OF PRESENT ILLNESS: This patient is a 23-year-old white male from [place], [place], here in town attending the [employer] who was brought to the Emergency Room at 3:00 a.m. unresponsive and heavily intoxicated apparently started an argument with the police and was found later on in the evening outside a local bar unresponsive. He became apneic, had a blank stare. His saturation dropped to 83%. There was no obvious seizure activity, but his eyes were "flickering." He takes Adderall 20 mg (?) daily. He has passed out in the past and had to be hospitalized up in [place] and has been receiving counseling for his chronic ethanol abuse over the past several months. 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 Denies smoking history or respiratory difficulties and denies feeling dyspneic without pleuritic pain, sputum production, recent fevers, chills or sweats. No history of asthma. When I introduced myself as a crutch maker who was asked to see him in consultation, he asked "do I have a lung problem" so therefore he is not aware of any respiratory issues. H and H on admission were 18 and 49. For review of systems and past medical history, I refer you to current and past record. PHYSICAL EXAMINATION: GENERAL: Reveals a well-developed balding white male appearing somewhat older than stated age, very very sleepy but easily arousable and oriented x3. CURRENT VITAL SIGNS: Blood pressure 107/69, pulse 73 and regular, respiratory rate 16, temperature 36.3 and O2 sat 100% on room air. SKIN: Without lesion. HEENT: Atraumatic and normocephalic. PERRLA. EOMI. Conjunctivae pink. Sclerae nonicteric. Fundi benign. Tympanic membranes are within normal limits. Pharyngeal examination is intact. NECK: Neck veins are not distended at 45 degrees. No bruits. LUNGS: Relatively clear to P and A. CARDIAC: Regular rate and rhythm. No murmurs or gallops. ABDOMEN: Soft and scaphoid. No evidence of hepatosplenomegaly. EXTREMITIES: No pedal edema, clubbing or cyanosis. NEUROLOGIC: Intact. No lateralizing signs. LABORATORY DATA: White count was 7800 and H and H of 18.2 and 49.6. Rest of the chemistry is unremarkable. Troponin etc. unremarkable. Chest x-ray shows no acute infiltrate. CAT of the head showed no acute intracranial problem or issue or abnormality. OVERALL ASSESSMENT: This patient is a 23-year-old male with recent acute alcohol intoxication and witnessed apneic episode and resultant hypoxia who now appears to be stable from a cardiopulmonary standpoint. He has no history of cardiac or respiratory issues nor is he symptomatic or hypoxic currently. I do not think any additional workup is needed from a pulmonary standpoint given his negative history and the fact that certainly one can see apneic episodes during acute ethanol intoxication and with resultant hypoxemia. I do not feel any additional workup is required currently unless the patient would exhibit recurrent bouts of apnea and hypoxemia (when not drinking) or anything that would suggest intrinsic cardiopulmonary disease.
== END 2019-05-02 17:00 | disposition home or self-care (01) | DRG 897 ==
LOC: ED 02:42 → 2W 05:58 → SUATTDRO 05:58 → 2W 07:01